=== PATIENT | male | born 1975 | race Caucasian/White ===

== ENCOUNTER 2021-01-07 23:26 | Emergency (ER) | payer MEDICAID ==
[~2021-01-07] VITALS: Ht 175.3 cm; Wt 72.7 kg
[~2021-01-07 23:26] MED LIST: DICY10CA88 PO; ZOF4T PO
[2021-01-07 23:30] VITALS: BP 148/102
[2021-01-07] MEDS ORDERED: IBUP-1984 PO (23:57)
[2021-01-07] MEDS ORDERED: CLIN150C2 PO (23:57)
== END 2021-01-08 00:03 | disposition home or self-care (01) ==
LOC: ER 23:27
DX: T14.90XA Injury, unspecified, initial encounter (principal); K02.9 Dental caries, unspecified; M25.562 Pain in left knee; F17.200 Nicotine dependence, unspecified, uncomplicated; Z72.89 Other problems related to lifestyle; Z88.1 Allergy status to other antibiotic agents; Z88.2 Allergy status to sulfonamides; Z88.8 Allergy status to other drugs, medicaments and biological substances; Z79.2 Long term (current) use of antibiotics; Z79.899 Other long term (current) drug therapy; V19.9XXA Pedal cyclist (driver) (passenger) injured in unspecified traffic accident, initial encounter; Y93.89 Activity, other specified; Y92.89 Other specified places as the place of occurrence of the external cause; Y99.8 Other external cause status
CPT/HCPCS: 99283

== ENCOUNTER 2021-12-03 16:22 | Emergency (ER) | payer MEDICAID ==
[~2021-12-03] VITALS: Ht 172.7 cm; Wt 80.0 kg
[2021-12-03 16:39] VITALS: BP 129/80
[2021-12-03] MEDS ORDERED: DOXY100C77 PO (17:22)
== END 2021-12-03 18:08 | disposition home or self-care (01) ==
LOC: ER 16:22
DX: L08.9 Local infection of the skin and subcutaneous tissue, unspecified (principal); Z88.1 Allergy status to other antibiotic agents; Z88.2 Allergy status to sulfonamides; Z59.00 Homelessness unspecified
CPT/HCPCS: 99283